=== PATIENT | female | born 1975 | race Caucasian/White ===

== ENCOUNTER 2023-03-03 11:31 | Emergency (ER) | payer OTHER ==
[2023-03-03 11:40] VITALS: BP 126/79; PULSE 85; RESP 18; TEMP 98.9; BMI 31.4
[2023-03-03] MEDS ORDERED: LIDOCAINE 5% TOPICAL PATCH TP ONE (12:34)
[2023-03-03] MEDS ORDERED: KETOROLAC TROMETHAMINE 30 MG/1 ML VIAL IM ONE (12:34)
[2023-03-03] MEDS ORDERED: LIDOCAINE HCL/PF 1% SDV 5ML VIAL ONE (13:25)
[2023-03-03] MEDS ORDERED: LIDOCAINE 5% TOPICAL PATCH ONE ×2 (13:44→13:49)
[2023-03-03] MEDS ORDERED: KETOROLAC TROMETHAMINE 30 MG/1 ML VIAL ONE (13:44)
[2023-03-03 14:03] LABS: BASO % 0.6 % (0-2.0); HEMOGLOBIN 14.6 GM/dL (10.7-15.3); LYMPH % 38.5 % (8-40); MCH 28.9 pg (25.7-33.7); MEAN PLT VOLUME 8.9 fl (7.5-11.1); MONO % 9.2 % (3.8-10.2); NEUT % 49.7 % (42.8-82.8); PLATELET COUNT 284 10^3/uL (134-434); RBC 5.06 M/mm3 (3.60-5.2); WHITE BLOOD COUNT 5.1 K/mm3 (4.0-10.0)
[2023-03-03 14:12] LABS: CHLORIDE 102 mmol/L (98-107); SODIUM 136 mmol/L (136-145)
[2023-03-03 14:14] LABS: CALCIUM 9.5 mg/dL (8.5-10.1)
[2023-03-03 14:15] LABS: ALBUMIN 4.7 g/dl (3.4-5.0); ANION GAP 4 MMOL/L (8-16); BLOOD UREA NITROGEN 13.3 mg/dL (7-18); CO2 30 mmol/L (21-32); GLUCOSE,RANDOM 71 mg/dL (74-106)
[2023-03-03 14:18] LABS: CREATININE 0.7 mg/dL (0.55-1.3); SGOT/AST 25 U/L (15-37); SGPT/ALT 36 U/L (13-61)
[2023-03-03 14:20] LABS: BILIRUBIN,TOTAL 0.8 mg/dL (0.2-1); TOT PROT 8.3 g/dl (6.4-8.2)
[2023-03-03 14:21] LABS: ALK PHOS 61 U/L (45-117)
[2023-03-03 14:46] LABS: ERYTHROCYTE SEDIMENTATION RATE 6 mm/hr (0-20)
== END 2023-03-03 16:34 | disposition home or self-care (01) ==
LOC: JERFT 11:31 → JER 11:31 → JERFT 16:34
PROC: 3E023GC Introduction of Other Therapeutic Substance into Muscle, Percutaneous Approach (ICD-10-PCS; principal; 2023-03-03)
DX: S42.142A Displaced fracture of glenoid cavity of scapula, left shoulder, initial encounter for closed fracture (principal); S42.152A Displaced fracture of neck of scapula, left shoulder, initial encounter for closed fracture; Y99.9 Unspecified external cause status
CPT/HCPCS: 36415; 71046-TC-FY; 73030-TC-LT-FY; 80053; 84703; 85025; 85651; 86140; 93970-TC; 99284-25